=== PATIENT | male | born 1950 | race Caucasian/White ===

== ENCOUNTER 2016-11-16 20:45 | Emergency (ER) | payer OTHER ==
[2016-11-16 19:53] LABS: BASOPHILS 0.4 %; BASOPHILS ABSOLUTE 0.03 10/3/uL (0.0-0.16); EOSINOPHILS 2.5 %; EOSINOPHILS ABSOLUTE 0.21 10/3/uL (0.0-0.53); ER CBC TAT 0 Hrs 07 Mins; HEMOGLOBIN 12.2 g/dL (13.6-17.8); IMMATURE GRANULOCYTES 0.5 %; IMMATURE GRANULOCYTES ABSOLUTE 0.04 10/3/uL (0.0-0.11); LYMPHOCYTES 12.1 %; MEAN CORPUSCULAR VOLUME 83.7 fL (80-100); MEAN PLATELET VOLUME 9.9 fL (9.2-13.0); MONOCYTES 5.8 %; MONOCYTES ABSOLUTE 0.48 10/3/uL (0.21-1.20); NEUTROPHILS 78.7 %; NEUTROPHILS ABSOLUTE 6.53 10/3/uL (2.02-8.40); PLATELET COUNT 226 10/3/uL (150-400); RBC DISTRIBUTION WIDTH 16.2 % (12.0-16.0); RED CELL COUNT 4.36 10/6/uL (4.7-6.1); WHITE BLOOD CELLS 8.3 10/3/uL (4.5-10.5)
[2016-11-16 19:54] LABS: HEMATOCRIT 36.5 % (40.0-51.0); MANUAL DIFF NO %; MEAN CORPUS HGB CONC 33.4 g/dL (32.0-36.0)
[2016-11-16 20:08] LABS: ALBUMIN 3.3 G/DL (3.5-5.0); ALKALINE PHOSPHATASE 110 U/L (45-117); BUN (BLOOD UREA NITROGEN) 9 MG/DL (6-23); CALCIUM, SERUM 8.3 MG/DL (8.5-10.4); CHLORIDE, SERUM 103 MMOL/L (96-112); CO2 (CARBON DIOXIDE) 30 MMOL/L (24-34); CREATININE 0.64 MG/DL (0.70-1.30); GFR AFRICAN AMERICAN 117 ML/MIN (>=60); GFR NON AFRICAN AMERICAN 101 ML/MIN (>=60); GLOBULIN 3.2 G/DL (2.5-4.1); GLUCOSE, SERUM 185 MG/DL (60-99); POTASSIUM, SERUM 3.4 MMOL/L (3.5-5.3); SGOT(AST) 29 U/L (5-40); SGPT(ALT) 38 U/L (5-65); SODIUM, SERUM 141 MMOL/L (135-148); TOTAL BILIRUBIN 0.4 MG/DL (0-1.2); TOTAL PROTEIN 6.5 G/DL (6.0-8.5)
[2016-11-16 20:10] LABS: INFLUENZA A SCREEN NEGATIVE (NEGATIVE); INFLUENZA B SCREEN NEGATIVE (NEGATIVE)
[~2016-11-16 20:45] MED LIST: *UNABLE1; ABILIFY10 PO; ALBUTEROL NEB 0.083% INH; ALBUTEROL5 INH; AMITIZA24 PO; ASAB PO; ATIVAN2 MG PO; ATV1 PO; AUG875 PO; AVANDAMET PO; BUPIVACAINE; CARASPUDL PO; CHEMOTHERAPY IV; CHEMOTHERAPY SC; COMBIVENT INH; COMBIVENT RESPIM4 GM PO; DEX4 PO; DEXAMETHASONE; DORYX150 MG PO; DULERA 200 MCG/13 GM INH; ENDOCET1 TA1 PO; ENDOCET1 TA3 PO; FESO4 PO; FLEX PO; FLUCON1 PO; FORTAMET500 MG PO; GLUCOPHAGE1000 MG PO; GLUCPH PO; GLUMETZA500 MG PO; HABIT21 TOP; HUMI PO; IRON 65MG; K-TABS10 MEQ PO; K500 PO; KDUR10 PO; KLONO2 PO; KLONO5 PO; KLOR-CON 1010 MEQ PO; L20 PO; L40 PO; LEVAQUIN750 MG PO; LEVOTHYROXIN75 MCG PO; LOFIB160 PO; LORTAB10 PO; LOVASA PO; LOVAZA1 GM PO; MARI5 PO; METHOC750B PO; MORPHINE IL; MORPHINE PUMP SC; NEUR300 PO; NEUR600 PO; NEUR800 PO; NORCO1 TAB PO; P20 PO; PAIN PUMP SC; PERCOCET1 TA4 PO; PHEN50TAB PO; PR25 PO; PRILO PO; PRILOSEC40 MG PO; PRISTIQ50 MG PO; PROAIR HFA INH; PROTONIX PO; PROTONIX20 MG PO; PROVENTSOL INH; PT UNABLE TO RECALL; REG PO; REMERON30 MG PO; REST15 PO; RISP2 PO; ROXANOL20 MG/ML IV; SPIRIVA INH; STERAPRED DS10 MG PO; SYMBICORT 160/41 INH INH; SYMBICORT 80/4.1 INH INH; SYN075 PO; SYN1 PO; SYNTHROID PO; TOPAMAX25 PO; TRAZ50 PO; TRICOR48 PO; VALTREX5; VENTOLIN HFA INH; VIAGRA100 MG PO; VIB100 PO; VICODINTAB PO; VITAMIN D1000 UNI1 PO; VITAMIN D31000 UNIT PO; ZANTAC 150 PO; ZOCOR20 PO; ZOCOR40 PO; ZOFRAN4 PO; ZOL100 PO; [UNRECOGNIZED DRUG - CODE] IL; [UNRECOGNIZED DRUG - OTHER]; [UNRECOGNIZED DRUG - OTHER]; [UNRECOGNIZED DRUG - OTHER] INF
[2017-05-13] MEDS ORDERED: ATV1 PO (19:00)
[2017-05-13] MEDS ORDERED: ATV.5 PO ×2 (19:01)
[2017-05-13] MEDS ORDERED: PERI-COLACE1 TAB PO (19:01)
[2017-05-13] MEDS ORDERED: CONSTULOSE PO (19:02)
[2017-05-13] MEDS ORDERED: PR25 PO (19:02)
[2017-05-13] MEDS ORDERED: L40 PO (19:02)
[2017-05-13] MEDS ORDERED: DEX2 PO (19:02)
[2017-05-13] MEDS ORDERED: ROXICODONE15 MG PO (19:03)
[2017-05-13] MEDS ORDERED: ABILIFY10 PO (19:03)
[2017-05-13] MEDS ORDERED: [UNRECOGNIZED DRUG - OTHER] PO (19:04)
[2017-05-13] MEDS ORDERED: TRAZ100 PO (19:04)
[2017-05-13] MEDS ORDERED: DUONEB INH (19:04)
[2017-05-13] MEDS ORDERED: KDUR10 PO (19:05)
[2017-05-13] MEDS ORDERED: NEUR800 PO (19:05)
[2017-05-13] MEDS ORDERED: VITAMIN D31000 UNIT PO (19:06)
[2017-05-13] MEDS ORDERED: FORTAMET500 MG PO (19:06)
[2017-05-13] MEDS ORDERED: ASAB PO (19:06)
[2017-05-13] MEDS ORDERED: PRILOSEC40 MG PO (19:07)
[2017-05-13] MEDS ORDERED: PAIN PUMP (19:08)
== END 2016-11-17 01:00 | disposition home or self-care (01) ==
LOC: ER 20:45
PROVIDERS: Hospitalist
DX: J44.1 Chronic obstructive pulmonary disease with (acute) exacerbation (principal); J98.11 Atelectasis; I50.9 Heart failure, unspecified; E11.9 Type 2 diabetes mellitus without complications; D64.9 Anemia, unspecified; Z88.8 Allergy status to other drugs, medicaments and biological substances; Z88.1 Allergy status to other antibiotic agents; Z79.899 Other long term (current) drug therapy
CPT/HCPCS: 71010; 71250; 80053; 85025; 87040; 87070; 87205; 87804; 93005; 94640; 96374; 99285; A9270-GY; J2405; J2930

== ENCOUNTER 2016-11-17 09:16 | Emergency (ER) | payer OTHER ==
[2016-11-17 10:21] LABS: BASOPHILS 0.1 %; BASOPHILS ABSOLUTE 0.01 10/3/uL (0.0-0.16); EOSINOPHILS 0.2 %; EOSINOPHILS ABSOLUTE 0.02 10/3/uL (0.0-0.53); HEMATOCRIT 39.1 % (40.0-51.0); IMMATURE GRANULOCYTES 0.4 %; IMMATURE GRANULOCYTES ABSOLUTE 0.04 10/3/uL (0.0-0.11); LYMPHOCYTES 7.2 %; LYMPHOCYTES ABSOLUTE 0.72 10/3/uL (0.67-4.30); MANUAL DIFF NO %; MEAN CORPUS HGB CONC 33.2 g/dL (32.0-36.0); MEAN CORPUSCULAR HEMOGLOB 27.9 pg (26.0-34.0); MEAN CORPUSCULAR VOLUME 83.9 fL (80-100); MEAN PLATELET VOLUME 10.3 fL (9.2-13.0); MONOCYTES 7.5 %; MONOCYTES ABSOLUTE 0.75 10/3/uL (0.21-1.20); NEUTROPHILS 84.6 %; NEUTROPHILS ABSOLUTE 8.46 10/3/uL (2.02-8.40); PLATELET COUNT 271 10/3/uL (150-400); RBC DISTRIBUTION WIDTH 15.7 % (12.0-16.0); RED CELL COUNT 4.66 10/6/uL (4.7-6.1)
[2016-11-17 10:27] LABS: PARTIAL THROMBO TIME 23.7 SEC (22.5-37.2); PROTIME (NOT ORD) 13.2 SEC (12.0-14.5)
[2016-11-17 10:38] LABS: BUN (BLOOD UREA NITROGEN) 11 MG/DL (6-23); CALCIUM, SERUM 8.7 MG/DL (8.5-10.4); CHEST PAIN PROFILE TAT 0 Hrs 23 Mins; CHLORIDE, SERUM 103 MMOL/L (96-112); CO2 (CARBON DIOXIDE) 28 MMOL/L (24-34); GFR AFRICAN AMERICAN 121 ML/MIN (>=60); GFR NON AFRICAN AMERICAN 104 ML/MIN (>=60); GLUCOSE, SERUM 223 MG/DL (60-99); POTASSIUM, SERUM 4.3 MMOL/L (3.5-5.3); SODIUM, SERUM 139 MMOL/L (135-148); TROPONIN I <0.02 NG/ML (<0.05)
[2016-11-17 12:35] LABS: ASCORBIC ACID (UR NOT ORDER) NEG (NEG); BILIRUBIN, URINE NEGATIVE (NEG); ER URINALYSIS TAT 0 Hrs 09 Mins; KETONE, URINE NEGATIVE (NEG); LEUKOCYTE ESTERASE(NOT OR NEG (NEG); NITRITE (URINE) NEG (NEG); WBC (NOT ORDERED) (RFLEX) 1 (0-5)
[2017-05-13] MEDS ORDERED: ATV1 PO (19:00)
[2017-05-13] MEDS ORDERED: PERI-COLACE1 TAB PO (19:01)
[2017-05-13] MEDS ORDERED: ATV.5 PO ×2 (19:01)
[2017-05-13] MEDS ORDERED: PR25 PO (19:02)
[2017-05-13] MEDS ORDERED: L40 PO (19:02)
[2017-05-13] MEDS ORDERED: CONSTULOSE PO (19:02)
[2017-05-13] MEDS ORDERED: DEX2 PO (19:02)
[2017-05-13] MEDS ORDERED: ABILIFY10 PO (19:03)
[2017-05-13] MEDS ORDERED: ROXICODONE15 MG PO (19:03)
[2017-05-13] MEDS ORDERED: [UNRECOGNIZED DRUG - OTHER] PO (19:04)
[2017-05-13] MEDS ORDERED: TRAZ100 PO (19:04)
[2017-05-13] MEDS ORDERED: DUONEB INH (19:04)
[2017-05-13] MEDS ORDERED: NEUR800 PO (19:05)
[2017-05-13] MEDS ORDERED: KDUR10 PO (19:05)
[2017-05-13] MEDS ORDERED: VITAMIN D31000 UNIT PO (19:06)
[2017-05-13] MEDS ORDERED: FORTAMET500 MG PO (19:06)
[2017-05-13] MEDS ORDERED: ASAB PO (19:06)
[2017-05-13] MEDS ORDERED: PRILOSEC40 MG PO (19:07)
[2017-05-13] MEDS ORDERED: PAIN PUMP (19:08)
== END 2016-11-17 16:42 | disposition home or self-care (01) ==
LOC: ER 09:16
PROVIDERS: Emergency Medicine
DX: R10.13 Epigastric pain (principal); R11.2 Nausea with vomiting, unspecified; J18.9 Pneumonia, unspecified organism; J44.9 Chronic obstructive pulmonary disease, unspecified; I50.9 Heart failure, unspecified; F17.200 Nicotine dependence, unspecified, uncomplicated; Z85.828 Personal history of other malignant neoplasm of skin
CPT/HCPCS: 71010; 74176; 80048; 81001; 83690; 83735; 84484; 85025; 85610; 85730; 93005; 96374; 96375; 99285; C9113; J1956; J2405

== ENCOUNTER 2016-12-31 19:16 | Inpatient (IN) | payer OTHER ==
--- NOTE | ~2016-12-31 | IDS ---
Interim Discharge Summary [facility] [address] [place]. [address] NAME: JAYE ODONNELL : 48 STATUS : ADM IN [facility]#: [id number] AGE: 66 ADM/REG DATE : 12/31/16 MR#: [id number] REPORT SERV DATE: 01/05/17 DICTATED BY: GEOFFREY GRAEVS DATE: 01/05/17 REPORT STATUS : Draft TRANSCRIBED BY: MODL DATE: 01/05/17 ADMISSION DATE: 12/31/2016 DISCHARGE DATE: PROBLEM LIST: 1. Healthcare associated pneumonia, recurrent. 2. Chronic obstructive pulmonary disease, oxygen dependent on 4 L in an active smoker. 3. Diabetes mellitus type 2 with A1c 6.1%. 4. Hypertension. 5. Chronic back pain with a pain pump managed by Dr. Acosta and he goes to another office to see oral ceramic painter Dr. Lombardo. 6. Opiate induced constipation. 7. History of vitamin D deficiency with previous hypocalcemia. 8. Bipolar disorder. 9. Obesity with body mass index of 33.7. 10.Previous melanoma. 11.Previous small bowel arteriovenous malformation bleeding. 12.History of previous deep venous thrombosis in 2011. 13.History of seizures many years ago. 14.History of low testosterone level. HISTORY: This patient reportedly has been at [facility] in August, October, and early December of this year with pneumonia, most recently they are 12/18/2016 through 12/22/2016. He presented to our emergency room with fever, cough, and found to have right middle and right lower lobe pneumonia, and was admitted to our team for inpatient care. The patient initially was on Rocephin and azithromycin, then converted over to cefepime and vancomycin because of his healthcare associated pneumonia. He improved and has been out taken off his vancomycin, and he is still on cefepime, and is clinically improving. The patient's procalcitonin at its highest was 1.04 ,currently improved to 0.58. He is still on 4 L which is his chronic baseline. He reportedly had history of sleep apnea in the past, but states he was told he got better on followup test and did not need CPAP. The patient has chronic pain for which he goes to Dr. Acosta and has a pain pump management. He also goes to another office where he sees Dr. Lombardo for oral pain medications. He has opiate induced constipation. He is on Amitiza which has not been doing a great job, so, MiraLAX has been added, we are also adding some lactulose. If this combination does not work well then possibly considering a change to Movantik. Physical therapy has recommended a correction facility placement. We will ask nurse outreach case manager to talk further with the patient about this. He has a history of bipolar disorder. He is currently cooperative and on medications for this. Because of the recurring pneumonia in the same section of the lung, he was seen by a Pulmonary doctor at [facility]. Dr. Ai Roberts, who did not recommend any bronchoscopy. Interim Discharge Summary [address] [place]. [address] NAME: JAYE DOONNELL : 48 STATUS : ADM IN PAT#: [id number] AGE: 66 ADM/REG DATE : 12/31/16 MR#: [id number] REPORT SERV DATE: 01/05/17 DICTATED BY: GEOFFREY GRAVES DATE: 01/05/17 REPORT STATUS : Draft TRANSCRIBED BY: SABIHA DATE: 01/05/17 However, I would recommend the patient see Dr. Conner his primary exchange architect after discharge, because of recurring pneumonia four times this year in the same section of the lungs suggests the possibility of underlying endobronchial lesion, even though reportedly it was not seen on the CT at [facility]. GINNY/SABIHA Geoffrey Graves M.D. / [id number] CC: MD OLIVIA Rodriguez II, TRACY
--- NOTE | ~2016-12-31 | HP ---
History And Physical [address] [place]. [address] NAME: JAYE ODONNELL : 48 STATUS : ADM IN [facility]#: [id number] AGE: 66 ADM/REG DATE : 12/31/16 MR#: [id number] REPORT SERV DATE: 01/01/17 DICTATED BY: MERCEDES EASLEY DATE: 12/31/16 REPORT STATUS : Draft TRANSCRIBED BY: MODL DATE: 12/31/16 DATE OF ADMISSION: 12/31/2016 POINT OF ENTRY: [facility] Emergency Department. PRIMARY ACCOUNT CONTACT ASSOCIATE: Dr. Conner. CHIEF COMPLAINT: Shortness of breath and fevers. HISTORY OF PRESENT ILLNESS: Mr. Odonnell is a 66-year-old gentleman with history of COPD on 4 L by nasal cannula, kic-deisxqr-mbqdqfugg diabetes mellitus, type 2; chronic diastolic congestive heart failure; hypothyroidism; as well as active tobacco abuse, who presents to the emergency department today with a few day history of shortness of breath, cough, sputum production, fevers, as well as abdominal pain, nausea, and vomiting. The patient is a very poor historian, but the patient states for the past few days, he has had fevers as high as 102 degrees Fahrenheit, cough, sputum production, shortness of breath. The patient also reports a few day history also of a diffuse abdominal pain with associated nausea and vomiting. He denies any chest pain, diarrhea, constipation, melena, hematochezia, hemoptysis, or hematemesis. Initial evaluation in the emergency department revealed a temperature of 100.6 degrees Fahrenheit, pulses were in the low 100s, white count 23,200, lactic acid is 2.8. Chest x- ray concerning for right lower lobe infiltrate. The patient was subsequently admitted to the Hospitalist Service for further evaluation and management. COMPREHENSIVE REVIEW OF SYSTEMS: Otherwise negative unless listed in history of present illness. PREVIOUS MEDICAL HISTORY: 1. COPD, on 4 L by nasal cannula. 2. Chronic diastolic congestive heart failure. 3. Hypothyroidism. 4. Vcz-vbdsnfp-iouvrxlhv diabetes mellitus type 2. 5. Chronic lower back pain on chronic narcotics. 6. Iron-deficiency anemia. 7. Active tobacco abuse. SURGICAL HISTORY: 1. Cholecystectomy. 2. Appendectomy. 3. Back surgery. 4. Total knee. ALLERGIES: 1. ATENOLOL. History And Physical [address] [place]. [address] NAME: JAYE ODONNELL : 48 STATUS : ADM IN [facility]#: [id number] AGE: 66 ADM/REG DATE : 12/31/16 MR#: [id number] REPORT SERV DATE: 01/01/17 DICTATED BY: MERCEDES EASLEY DATE: 12/31/16 REPORT STATUS : Draft TRANSCRIBED BY: SABIHA DATE: 12/31/16 2. LEVAQUIN. 3. STADOL. HOME MEDICATIONS: This is an incomplete list. This list also varies dramatically from discharge medication list from September as the patient has told pharmacy that he is not taking a great deal of medications. 1. Abilify 10 mg daily. 2. Vitamin D 1000 units daily. 3. Neurontin 800 mg b.i.d. 4. Amitiza 24 mcg b.i.d. 5. Remeron 30 mg daily. 6. Omeprazole 40 mg b.i.d. 7. Potassium chloride 10 mEq b.i.d. SOCIAL HISTORY: He still smokes about a half pack per day. Denies any alcohol. Denies any illicits. FAMILY HISTORY: The patient is unable to tell me any family medical history. LABS AND IMAGIN. White count 23,200, hemoglobin is 12.4, hematocrit is 38.0, and platelet count is 278. INR 1.2. 2. Sodium is 137, potassium 4.1, chloride 101, carbon dioxide 28, BUN 10, creatinine 0.76, glucose is 192, calcium is 8.6, protein 6.5, albumin is 3.5, bilirubin 1.2, ALT is 60, AST 47, and alkaline phosphatase is 176. 3. Lipase is 129. 4. Lactic acid 2.8. 5. Urinalysis: Spec gravity of 1.015, no evidence of any infection. 6. ABG; pH is 7.44, pCO2 is 37, PO2 is 74, bicarb is 25. 7. EKG per my review shows sinus tachycardia with heart rates of 109 with no evidence of any acute ischemia or infarction. 8. Chest x-ray per my review shows a right lower lobe consolidation concerning for pneumonia. PHYSICAL EXAMINATION: VITAL SIGNS: Temperature is 100.6 degrees Fahrenheit, pulse is 94, respirations 16, saturating 94% on 4 L by nasal cannula. Blood pressure 165/52. On recheck, blood pressure now 161/49, pulse of 103, saturating 92% on 4 L by nasal cannula. GENERAL: The patient is awake, alert, in no acute distress. Resting comfortably in bed. He is a chronically ill-appearing, elderly male. HEENT: Atraumatic and normocephalic. Moist mucous membranes. Pupils are equal, round, reactive to light and accommodation. Extraocular eye movements intact. No scleral icterus. NECK: No jugular venous distention. No carotid bruits. CARDIAC: Tachycardic rate, regular rhythm. No murmurs, rubs, or gallops. Normal S1, normal S2. LUNGS: On oxygen, mildly tachypneic but in no respiratory distress. Does have a right lower lobe inspiratory rhonchi but otherwise no wheezes or crackles appreciated. History And Physical [address] [address] NAME: JAYE ODONNELL : 48 STATUS : ADM IN [facility]#: [id number] AGE: 66 ADM/REG DATE : 12/31/16 MR#: [id number] REPORT SERV DATE: 01/01/17 DICTATED BY: MERCEDES EASLEY DATE: 12/31/16 REPORT STATUS : Draft TRANSCRIBED BY: SABIHA DATE: 12/31/16 ABDOMEN: Soft, diffusely tender on palpation, but no rebound, guarding, or rigidity. EXTREMITIES: Warm, perfused. No cyanosis, clubbing, or edema. SKIN: Warm and dry. PSYCH: Affect appropriate. NEURO: Alert and oriented x3. Cranial nerves 2 through 12 grossly intact. Speech is normal. Gait not assessed. ASSESSMENT: Mr. Odonnell is a 66-year-old gentleman who presents with a few day history of diffuse complaints including fevers, cough, sputum production, shortness of breath, abdominal pain, nausea, vomiting, found to have evidence of sepsis as well as a right lower lobe pneumonia. PROBLEM LIST: 1. Right lower lobe pneumonia. 2. Sepsis. 3. Abdominal pain, nausea, and vomiting. 4. COPD, on chronic 4 L by nasal cannula. 5. Chronic diastolic congestive heart failure. 6. Active tobacco abuse. 7. Medication noncompliance. 8. History of hypothyroidism. 9. History of nzm-ndmkyot-oqlrdueal diabetes mellitus type 2. PLAN: 1. Right lower lobe pneumonia with sepsis. We will place the patient on broad-spectrum antibiotics as well as aggressive IV fluid hydration. Follow up blood cultures and sputum cultures. We will repeat a lactic acid as it was elevated at 2.8. 2. Abdominal pain, nausea, and vomiting. Checking a CT scan of the abdomen and pelvis given the patient's complaints of abdominal pain, nausea, vomiting, as well as a white count 23,000 and a mildly elevated lactic acid level, which I think is due to pneumonia but will rule out abdominal source. 3. COPD. The patient does not appear to have any acute exacerbation at this time as I do not appreciate any wheezing. We will continue patient on frequent bronchodilators. 4. Chronic diastolic congestive heart failure. The patient appears euvolemic to slightly dry at this time. Continue to monitor. Checking a BNP level. 5. History of wsk-iejmbhe-lwfxpnvit diabetes mellitus type 2. The patient reports he is not currently on any medications. Checking hemoglobin A1c as well as placing on a level 1 insulin sliding scale. 6. History of hypothyroidism. The patient also denies taking any Synthroid, checking a TSH level. 7. Active tobacco abuse. Counseled the need for tobacco cessation. 8. DVT prophylaxis. Lovenox subcu. CODE STATUS: The patient wished to be full code. History And Physical [address] [address] NAME: JAYE ODONNELL : 48 STATUS : ADM IN [facility]#: [id number] AGE: 66 ADM/REG DATE : 12/31/16 MR#: [id number] REPORT SERV DATE: 01/01/17 DICTATED BY: MERCEDES EASLEY DATE: 12/31/16 REPORT STATUS : Draft TRANSCRIBED BY: MODPat DATE: 12/31/16 AGUSTIN/SABIHA Mercedes Easley MD / [id number] CC: Duy Tellez M.D.
--- NOTE | ~2016-12-31 | DS ---
Discharge Summary [facility] [address] [facility] [place]. [address] NAME: JAYE ODONNELL : 48 STATUS : DIS IN PAT#: [id number] AGE: 66 ADM/REG DATE : 12/31/16 MR#: [id number] REPORT SERV DATE: 01/07/17 DICTATED BY: NICOLE DOAN DATE: 01/07/17 REPORT STATUS : Draft TRANSCRIBED BY: MODPat DATE: 01/07/17 ADMISSION DATE: 12/31/2016 DISCHARGE DATE: 01/07/2017 PRINCIPAL DIAGNOSIS: Hospital-acquired pneumonia. SECONDARY DIAGNOSES: Chronic obstructive pulmonary disease with exacerbation, atelectasis, hypoxemic respiratory failure acute on chronic, bipolar, chronic pain syndrome, opiate- induced constipation, and diabetes. HISTORY OF PRESENT ILLNESS: Please see Dr. Blu Townsend's dictation 12/31/2016. HOSPITAL COURSE: Admitted with recurrent pneumonia, bilateral infiltrates, confirmed to have a right lower lobe infiltrate on CT but a large amount of atelectasis. The patient received broad spectrum antibiotics with gradual improvement, still with ongoing hypoxemia. He underwent some chest percussion therapy, mucolytic therapy with resolution of the atelectasis, and the infiltrate had already gotten better as well. The patient had completed his eight day of antibiotics by 01/07/2017. He actually was doing poorly with physical therapy and was requested to go to a detention facility. However, the patient refused detention facility placement and instead wished to go home with home health care especially due to concerns about his check so the patient went home with reservations. Otherwise stable condition with low-salt, 1800 calorie ADA diet. Activity per home health care and ongoing use of wheelchair. Following medications; Duo-nebs p.r.n., Spiriva, Brovana, Pulmicort, MiraLAX, Mucinex, oxycodone was reduced to 10 mg and p.r.n. only, MS Contin continue 30 b.i.d., home doses of insulin were resumed, Remeron, Neurontin, Abilify, Amitiza, nicotine patch. DICTATED BY: Duy Fang/SABIHA Nicole Doan M.D. / [id number] CC: Duy Fang
--- NOTE | ~2016-12-31 | IDS ---
Interim Discharge Summary [facility] [address] [place]. [address] NAME: JAYE ODONNELL : 48 STATUS : ADM IN [facility]#: [id number] AGE: 66 ADM/REG DATE : 12/31/16 MR#: [id number] REPORT SERV DATE: 01/05/17 DICTATED BY: DATE: REPORT STATUS : Draft TRANSCRIBED BY: MODL DATE: 01/04/17 ADMISSION DATE: 12/31/2016 DISCHARGE DATE: DATE OF DISCHARGE: Hopefully within the next 48 hours. INTERIM DIAGNOSES: 1. Healthcare acquired pneumonia. 2. Sepsis, resolved. 3. Chronic obstructive pulmonary disease with chronic hypoxic respiratory failure. 4. Debility/deconditioning. 5. Tobacco abuse. 6. Type 2 diabetes mellitus. 7. Chronic pain. 8. Opioid-induced constipation. 9. Bipolar disorder. CONSULTATIONS: None. PERTINENT TESTS AND PROCEDURES: 1. Chest x-ray, 12/31/2016. Impression: Basilar infiltrate, question pneumonia. Associated pleural effusion cannot be excluded on the right side. 2. CT of abdomen and pelvis with contrast, 12/31/2016. Impression: Right middle and right lower lobe acute pneumonia. Status post cholecystectomy, lumbar spine fusion L3 through S1, with laminectomy L3 through L5, and implanted pain medication pump right lower quadrant. No acute pathology. 3. Chest x-ray, 01/03/2017. Impression: Persistent right lower lobe infiltrate consistent with residual pneumonia, although improving from 12/31/2016 chest x-ray and CT abdomen. 4. Blood cultures x2 sites, specimen collected 12/31/2016. Final result: One positive blood culture. Two collected growth of Staph species coag negative, probable contamination. Interim summary covers dates of service between 01/01/2017 and 01/04/2017. CHIEF COMPLAINT UPON ADMISSION: Shortness of breath and fevers. HOSPITAL COURSE: 1. Healthcare acquired pneumonia. The patient has suffered from respiratory illness since November. Review of records obtained from [facility] showed the patient had ER visit on 12/07/2016 at which time, he was diagnosed with acute bronchitis and COPD exacerbation. The patient also reported to emergency department on 12/16/2016 and was diagnosed with acute bacterial pneumonia and was discharged home with a prescription for Levaquin. The patient was also admitted to [facility] between dates of service 12/18/2016 and 12/23/2016 for community-acquired pneumonia and bronchial obstruction secondary to mucus plug since resolved. During this admission, the patient was evaluated by Dr. Roberts, Pulmonology, at [facility]. There was initial concern for endobronchial lesion, Interim Discharge Summary [id number] [place]. [address] NAME: JAYE ODONNELL : 48 STATUS : ADM IN PAT#: [id number] AGE: 66 ADM/REG DATE : 12/31/16 MR#: [id number] REPORT SERV DATE: 01/05/17 DICTATED BY: DATE: REPORT STATUS : Draft TRANSCRIBED BY: MODL DATE: 01/04/17 but it was ruled out and attributed to mucus plug. The patient completed 10 days of Levaquin during that admission. The patient's white blood count was elevated and reported to be 23,200 upon admission. The patient was placed on azithromycin and Rocephin upon admission. Within 24 hours the patient's white count trended upward to 25,600. At that time, azithromycin and Rocephin were discontinued, and vancomycin and cefepime were initiated, within 24 hours the patient's white count trended down to 11,800, and is normal today at 9,100. Vancomycin was discontinued today. Continue cefepime and deescalate when medically appropriate to p.o. antibiotics. Chest x-ray in a.m. pending along with repeat procalcitonin. 1. Sepsis. This was present upon admission secondary to healthcare associated pneumonia. Sepsis has since resolved with antibiotic therapy. 2. COPD with chronic hypoxic respiratory failure. The patient is 4 L supplemental O2 dependent at home. 3. Debility/deconditioning. The patient is significantly weak secondary to multiple health comorbidities. The patient lives alone. PT recommended correction facility at discharge. The patient declined stating he lives alone and needs to manage his personal affairs once discharged from hospital. Social Work is planning home health care at discharge. 4. Tobacco abuse. The patient has been taking Chantix for approximately two months in an attempt to stop smoking. Dose was continued during admission, but was stopped yesterday due to progressive headache. Since discontinuing Chantix headache has resolved. 5. Type 2 diabetes mellitus. The patient's blood glucose is stable on current regimen. 6. Chronic pain secondary to previous spinal surgeries. The patient has a pain pump implanted in his right lower abdominal quadrant. Pain pump is composed with bupivacaine and morphine that is refilled monthly. The patient is followed by Dr. Lombardo and Soto Ge, physician insurance account assistant. The patient's oral home pain medications were verified by Pharmacy and have been continued during this admission. Follow up outpatient with Pain Management upon discharge. 7. Opioid-induced constipation. The patient is on chronic therapy with Amitiza; however, is still suffering from constipation, MiraLAX and Senokot added. 8. Bipolar disorder. Continue Abilify and mirtazapine. DISCHARGE PLANS: 1. Social Work has been consulted regarding planning to include home health care at discharge. 2. The patient to hopefully discharge home within next 48 to 72 hours if respiratory status remains stable, and pneumonia continues to resolve on current antibiotic therapy. ERNESTO/SABIHA BRIANNE Chaidez Interim Discharge Summary [address] [address] NAME: JAYE ODONNELL : 48 STATUS : ADM IN PAT#: [id number] AGE: 66 ADM/REG DATE : 12/31/16 MR#: [id number] REPORT SERV DATE: 01/05/17 DICTATED BY: DATE: REPORT STATUS : Draft TRANSCRIBED BY: SABIHA DATE: 01/04/17 / [id number] CC: MD Betty Rodriguez II, MD
[2016-12-31 21:37] LABS: ASCORBIC ACID (UR NOT ORDER) NEG (NEG); BILIRUBIN, URINE NEGATIVE (NEG); ER URINALYSIS TAT 0 Hrs 07 Mins; KETONE, URINE NEGATIVE (NEG); LEUKOCYTE ESTERASE(NOT OR NEG (NEG); NITRITE (URINE) NEG (NEG); WBC (NOT ORDERED) (RFLEX) < 1 (0-5)
[2016-12-31 21:43] LABS: BASOPHILS 0.1 %; BASOPHILS ABSOLUTE 0.03 10/3/uL (0.0-0.16); EOSINOPHILS 0.5 %; EOSINOPHILS ABSOLUTE 0.11 10/3/uL (0.0-0.53); HEMOGLOBIN 12.4 g/dL (13.6-17.8); IMMATURE GRANULOCYTES 0.4 %; IMMATURE GRANULOCYTES ABSOLUTE 0.09 10/3/uL (0.0-0.11); LYMPHOCYTES 2.4 %; LYMPHOCYTES ABSOLUTE 0.56 10/3/uL (0.67-4.30); MEAN CORPUS HGB CONC 32.6 g/dL (32.0-36.0); MEAN CORPUSCULAR HEMOGLOB 26.3 pg (26.0-34.0); MEAN PLATELET VOLUME 10.3 fL (9.2-13.0); MONOCYTES 3.2 %; MONOCYTES ABSOLUTE 0.75 10/3/uL (0.21-1.20); NEUTROPHILS 93.4 %; NEUTROPHILS ABSOLUTE 21.64 10/3/uL (2.02-8.40); PLATELET COUNT 278 10/3/uL (150-400); RBC DISTRIBUTION WIDTH 14.9 % (12.0-16.0); RED CELL COUNT 4.71 10/6/uL (4.7-6.1)
[2016-12-31 21:44] LABS: ER CBC TAT 0 Hrs 08 Mins; MEAN CORPUSCULAR VOLUME 80.7 fL (80-100); WHITE BLOOD CELLS 23.2 10/3/uL (4.5-10.5)
[2016-12-31 21:45] LABS: MANUAL DIFF NO %
[2016-12-31 21:53] LABS: PARTIAL THROMBO TIME 27.1 SEC (22.5-37.2); PROTIME (NOT ORD) 13.1 SEC (12.0-14.5)
[2016-12-31 22:01] LABS: A/G RATIO 1.2 (0.7-1.9); ALBUMIN 3.5 G/DL (3.5-5.0); ALKALINE PHOSPHATASE 176 U/L (45-117); BUN (BLOOD UREA NITROGEN) 10 MG/DL (6-23); CALCIUM, SERUM 8.6 MG/DL (8.5-10.4); CHLORIDE, SERUM 101 MMOL/L (96-112); CO2 (CARBON DIOXIDE) 28 MMOL/L (24-34); CREATININE 0.76 MG/DL (0.70-1.30); GFR AFRICAN AMERICAN 109 ML/MIN (>=60); GFR NON AFRICAN AMERICAN 94 ML/MIN (>=60); GLUCOSE, SERUM 192 MG/DL (60-99); POTASSIUM, SERUM 4.1 MMOL/L (3.5-5.3); SGOT(AST) 47 U/L (5-40); SGPT(ALT) 60 U/L (5-65); SODIUM, SERUM 137 MMOL/L (135-148); TOTAL BILIRUBIN 1.2 MG/DL (0-1.2); TOTAL PROTEIN 6.5 G/DL (6.0-8.5)
[2016-12-31 22:06] LABS: LACTATE 2.8 MMOL/L (0.3-2.4)
[2016-12-31 22:30] LABS: PROCALCITONIN 0.44 ng/mL (<0.5)
[2016-12-31] MEDS ORDERED: KLOR-CON 1010 MEQ PO (22:31)
[2016-12-31] MEDS ORDERED: AMITIZA24 PO (22:31)
[2016-12-31] MEDS ORDERED: ABILIFY10 PO (22:31)
[2016-12-31] MEDS ORDERED: PRILOSEC40 MG PO (22:31)
[2016-12-31] MEDS ORDERED: NEUR800 PO (22:31)
[2016-12-31] MEDS ORDERED: VITAMIN D31000 UNIT PO (22:32)
[2016-12-31] MEDS ORDERED: REMERON30 MG PO (22:33)
[2016-12-31] MEDS ORDERED: *UNABLE1 (22:33)
[2017-01-01 03:30] LABS: HEMATOCRIT 35.9 % (40.0-51.0); HEMOGLOBIN 11.7 g/dL (13.6-17.8); MEAN CORPUS HGB CONC 32.6 g/dL (32.0-36.0); MEAN CORPUSCULAR HEMOGLOB 26.6 pg (26.0-34.0); MEAN CORPUSCULAR VOLUME 81.6 fL (80-100); MEAN PLATELET VOLUME 10.5 fL (9.2-13.0); PLATELET COUNT 260 10/3/uL (150-400); RBC DISTRIBUTION WIDTH 14.8 % (12.0-16.0); WHITE BLOOD CELLS 25.6 10/3/uL (4.5-10.5)
[2017-01-01 03:31] LABS: MANUAL DIFF YES %
[2017-01-01 03:54] LABS: BUN (BLOOD UREA NITROGEN) 11 MG/DL (6-23); CALCIUM, SERUM 8.2 MG/DL (8.5-10.4); CHLORIDE, SERUM 103 MMOL/L (96-112); CO2 (CARBON DIOXIDE) 26 MMOL/L (24-34); CREATININE 0.88 MG/DL (0.70-1.30); FREE T4 1.07 NG/DL (0.76-1.46); GFR AFRICAN AMERICAN 103 ML/MIN (>=60); GFR NON AFRICAN AMERICAN 89 ML/MIN (>=60); GLUCOSE, SERUM 297 MG/DL (60-99); SODIUM, SERUM 139 MMOL/L (135-148)
[2017-01-01 03:55] LABS: BAND NEUTROPHILS 13 %; LYMPHOCYTES 1 %; LYMPHOCYTES ABSOLUTE (CALC) 0.26 10/3/uL (0.67-4.30); MONOCYTES 1 %; MONOCYTES ABSOLUTE (CALC) 0.26 10/3/uL (0.21-1.20); NEUTROPHILS ABSOLUTE (CALC) 25.09 10/3/uL (2.02-8.40); PLATELET ESTIMATE ADQ (ADEQUATE); RBC MORPHOLOGY NORM (NORMAL); SEGMENTED NEUTROPHIL (0) 85 %; TOTAL NUCLEATED CELLS 100
[2017-01-01 04:24] LABS: ALLENS TEST Pos; BE (BASE EXCESS) 0.7 MEQ/L (0 +/- 2.5); CARBOXYHEMOGLOBIN 2.5 % (0-3); DEVICE NC; HCO3 (ACTUAL BICARBONATE) 24.5 MEQ/L (23-27); HEMOBLOGIN CONTENT 13.3 G/DL (14-18); INSTRUMENT SERIAL # 8087; METHEMOGLOBIN 0.3 % (0-3); O2 CONTENT 17.4 VOL% (18-24); OPERATOR ID 35390; PCO2 (CO2 TENSION) 37 MMHG (35-45); PO2 (O2 TENSION) 74 MMHG (79-93); SAMPLE Arterial; pH 7.44 (7.37-7.43)
[2017-01-01] MEDS ORDERED: KLONO5 PO ×2 (13:20)
[2017-01-01] MEDS ORDERED: PAIN PUMP (13:20)
[2017-01-01] MEDS ORDERED: ROXICODONE15 MG PO (13:21)
[2017-01-01] MEDS ORDERED: MSCONTIN PO (13:21)
[2017-01-01] MEDS ORDERED: MARI5 PO (13:22)
[2017-01-01 22:19] LABS: ASCORBIC ACID (UR NOT ORDER) NEG (NEG); BILIRUBIN, URINE NEGATIVE (NEG); KETONE, URINE NEGATIVE (NEG); LEUKOCYTE ESTERASE(NOT OR NEG (NEG); WBC (NOT ORDERED) (RFLEX) < 1 (0-5)
[2017-01-02 06:29] LABS: BASOPHILS 0.2 %; BASOPHILS ABSOLUTE 0.02 10/3/uL (0.0-0.16); EOSINOPHILS 1.4 %; EOSINOPHILS ABSOLUTE 0.16 10/3/uL (0.0-0.53); HEMOGLOBIN 9.7 g/dL (13.6-17.8); IMMATURE GRANULOCYTES 0.3 %; IMMATURE GRANULOCYTES ABSOLUTE 0.03 10/3/uL (0.0-0.11); LYMPHOCYTES 9.7 %; LYMPHOCYTES ABSOLUTE 1.14 10/3/uL (0.67-4.30); MEAN CORPUS HGB CONC 32.7 g/dL (32.0-36.0); MEAN CORPUSCULAR HEMOGLOB 26.2 pg (26.0-34.0); MEAN CORPUSCULAR VOLUME 80.3 fL (80-100); MEAN PLATELET VOLUME 10.2 fL (9.2-13.0); MONOCYTES 5.4 %; MONOCYTES ABSOLUTE 0.63 10/3/uL (0.21-1.20); NEUTROPHILS ABSOLUTE 9.78 10/3/uL (2.02-8.40); PLATELET COUNT 220 10/3/uL (150-400); RBC DISTRIBUTION WIDTH 15.2 % (12.0-16.0)
[2017-01-02 06:31] LABS: HEMATOCRIT 29.7 % (40.0-51.0); MANUAL DIFF NO %; WHITE BLOOD CELLS 11.8 10/3/uL (4.5-10.5)
[2017-01-02 06:40] LABS: CALCIUM, SERUM 8.3 MG/DL (8.5-10.4); CHLORIDE, SERUM 108 MMOL/L (96-112); CO2 (CARBON DIOXIDE) 29 MMOL/L (24-34); GFR AFRICAN AMERICAN 113 ML/MIN (>=60); GFR NON AFRICAN AMERICAN 98 ML/MIN (>=60); POTASSIUM, SERUM 3.7 MMOL/L (3.5-5.3); SODIUM, SERUM 143 MMOL/L (135-148)
[2017-01-02 06:41] LABS: BUN (BLOOD UREA NITROGEN) 17 MG/DL (6-23); GLUCOSE, SERUM 170 MG/DL (60-99)
[2017-01-02] MEDS ORDERED: CHANTIX1 PO (12:28)
[2017-01-02 13:54] LABS: HEMATOCRIT 32.1 % (40.0-51.0); HEMOGLOBIN 10.2 g/dL (13.6-17.8)
[2017-01-03 07:44] LABS: BASOPHILS 0.1 %; BASOPHILS ABSOLUTE 0.01 10/3/uL (0.0-0.16); EOSINOPHILS 3.6 %; EOSINOPHILS ABSOLUTE 0.26 10/3/uL (0.0-0.53); HEMATOCRIT 33.5 % (40.0-51.0); HEMOGLOBIN 10.7 g/dL (13.6-17.8); IMMATURE GRANULOCYTES 0.4 %; IMMATURE GRANULOCYTES ABSOLUTE 0.03 10/3/uL (0.0-0.11); LYMPHOCYTES 12.6 %; LYMPHOCYTES ABSOLUTE 0.92 10/3/uL (0.67-4.30); MEAN CORPUS HGB CONC 31.9 g/dL (32.0-36.0); MEAN CORPUSCULAR HEMOGLOB 26.6 pg (26.0-34.0); MEAN PLATELET VOLUME 10.5 fL (9.2-13.0); MONOCYTES 6.3 %; MONOCYTES ABSOLUTE 0.46 10/3/uL (0.21-1.20); NEUTROPHILS ABSOLUTE 5.64 10/3/uL (2.02-8.40); PLATELET COUNT 227 10/3/uL (150-400); RED CELL COUNT 4.02 10/6/uL (4.7-6.1); WHITE BLOOD CELLS 7.3 10/3/uL (4.5-10.5)
[2017-01-03 07:47] LABS: MANUAL DIFF NO %; MEAN CORPUSCULAR VOLUME 83.3 fL (80-100)
[2017-01-03 07:56] LABS: BUN (BLOOD UREA NITROGEN) 13 MG/DL (6-23); CALCIUM, SERUM 8.8 MG/DL (8.5-10.4); CHLORIDE, SERUM 105 MMOL/L (96-112); CO2 (CARBON DIOXIDE) 30 MMOL/L (24-34); CREATININE 0.66 MG/DL (0.70-1.30); GFR AFRICAN AMERICAN 116 ML/MIN (>=60); GFR NON AFRICAN AMERICAN 100 ML/MIN (>=60); GLUCOSE, SERUM 123 MG/DL (60-99); SODIUM, SERUM 143 MMOL/L (135-148)
[2017-01-03 09:25] LABS: PROCALCITONIN 1.04 ng/mL (<0.5)
[2017-01-04 05:27] LABS: HEMATOCRIT 34.2 % (40.0-51.0); MEAN CORPUS HGB CONC 32.2 g/dL (32.0-36.0); MEAN CORPUSCULAR HEMOGLOB 26.3 pg (26.0-34.0); MEAN CORPUSCULAR VOLUME 81.6 fL (80-100); MEAN PLATELET VOLUME 10.9 fL (9.2-13.0); PLATELET COUNT 253 10/3/uL (150-400); RED CELL COUNT 4.19 10/6/uL (4.7-6.1); WHITE BLOOD CELLS 9.1 10/3/uL (4.5-10.5)
[2017-01-04 05:30] LABS: MANUAL DIFF YES %
[2017-01-04 05:32] LABS: BUN (BLOOD UREA NITROGEN) 14 MG/DL (6-23); CHLORIDE, SERUM 111 MMOL/L (96-112); CO2 (CARBON DIOXIDE) 31 MMOL/L (24-34); CREATININE 0.66 MG/DL (0.70-1.30); GFR AFRICAN AMERICAN 116 ML/MIN (>=60); GFR NON AFRICAN AMERICAN 100 ML/MIN (>=60); GLUCOSE, SERUM 140 MG/DL (60-99); POTASSIUM, SERUM 3.7 MMOL/L (3.5-5.3)
[2017-01-04 05:36] LABS: SODIUM, SERUM 136 MMOL/L (135-148)
[2017-01-04 06:03] LABS: EOSINOPHILS 5 %; EOSINOPHILS ABSOLUTE (CALC) 0.46 10/3/uL (0.0-0.53); LYMPHOCYTES 7 %; LYMPHOCYTES ABSOLUTE (CALC) 0.64 10/3/uL (0.67-4.30); MONOCYTES 4 %; MONOCYTES ABSOLUTE (CALC) 0.36 10/3/uL (0.21-1.20); NEUTROPHILS ABSOLUTE (CALC) 7.64 10/3/uL (2.02-8.40); PLATELET ESTIMATE ADQ (ADEQUATE); RBC MORPHOLOGY NORM (NORMAL); SEGMENTED NEUTROPHIL (0) 84 %; TOTAL NUCLEATED CELLS 100
[2017-01-04 08:25] LABS: PROCALCITONIN 0.77 ng/mL (<0.5)
[2017-01-05 03:54] LABS: BASOPHILS 0.5 %; BASOPHILS ABSOLUTE 0.05 10/3/uL (0.0-0.16); EOSINOPHILS 5.9 %; EOSINOPHILS ABSOLUTE 0.55 10/3/uL (0.0-0.53); HEMATOCRIT 34.1 % (40.0-51.0); HEMOGLOBIN 10.9 g/dL (13.6-17.8); IMMATURE GRANULOCYTES 0.4 %; IMMATURE GRANULOCYTES ABSOLUTE 0.04 10/3/uL (0.0-0.11); LYMPHOCYTES 12.4 %; LYMPHOCYTES ABSOLUTE 1.15 10/3/uL (0.67-4.30); MANUAL DIFF NO %; MEAN CORPUSCULAR HEMOGLOB 25.9 pg (26.0-34.0); MEAN PLATELET VOLUME 10.4 fL (9.2-13.0); MONOCYTES 6.8 %; MONOCYTES ABSOLUTE 0.63 10/3/uL (0.21-1.20); NEUTROPHILS ABSOLUTE 6.89 10/3/uL (2.02-8.40); PLATELET COUNT 252 10/3/uL (150-400); RBC DISTRIBUTION WIDTH 14.7 % (12.0-16.0); RED CELL COUNT 4.21 10/6/uL (4.7-6.1); WHITE BLOOD CELLS 9.3 10/3/uL (4.5-10.5)
[2017-01-05 04:09] LABS: BUN (BLOOD UREA NITROGEN) 14 MG/DL (6-23); CALCIUM, SERUM 8.8 MG/DL (8.5-10.4); CHLORIDE, SERUM 104 MMOL/L (96-112); CO2 (CARBON DIOXIDE) 33 MMOL/L (24-34); CREATININE 0.67 MG/DL (0.70-1.30); GFR AFRICAN AMERICAN 115 ML/MIN (>=60); GFR NON AFRICAN AMERICAN 99 ML/MIN (>=60); GLUCOSE, SERUM 114 MG/DL (60-99); POTASSIUM, SERUM 4.2 MMOL/L (3.5-5.3); SODIUM, SERUM 142 MMOL/L (135-148)
[2017-01-05 04:47] LABS: PROCALCITONIN 0.58 ng/mL (<0.5)
[2017-01-06 06:08] LABS: BASOPHILS 0.4 %; BASOPHILS ABSOLUTE 0.04 10/3/uL (0.0-0.16); EOSINOPHILS 4.8 %; EOSINOPHILS ABSOLUTE 0.47 10/3/uL (0.0-0.53); HEMATOCRIT 37.4 % (40.0-51.0); IMMATURE GRANULOCYTES 0.9 %; IMMATURE GRANULOCYTES ABSOLUTE 0.09 10/3/uL (0.0-0.11); LYMPHOCYTES 11.3 %; MANUAL DIFF NO %; MEAN CORPUS HGB CONC 32.1 g/dL (32.0-36.0); MEAN CORPUSCULAR HEMOGLOB 26.3 pg (26.0-34.0); MEAN CORPUSCULAR VOLUME 81.8 fL (80-100); MEAN PLATELET VOLUME 10.6 fL (9.2-13.0); MONOCYTES 6.3 %; MONOCYTES ABSOLUTE 0.61 10/3/uL (0.21-1.20); NEUTROPHILS 76.3 %; NEUTROPHILS ABSOLUTE 7.41 10/3/uL (2.02-8.40); PLATELET COUNT 267 10/3/uL (150-400); RBC DISTRIBUTION WIDTH 14.8 % (12.0-16.0); RED CELL COUNT 4.57 10/6/uL (4.7-6.1); WHITE BLOOD CELLS 9.7 10/3/uL (4.5-10.5)
[2017-01-07] MEDS ORDERED: ROXICODONE15 MG PO ×2 (11:37→11:38)
[2017-01-07] MEDS ORDERED: MUCINEX600 MG PO (11:38)
[2017-01-07] MEDS ORDERED: BROVANA15 MCG INH (11:39)
[2017-01-07] MEDS ORDERED: HABIT14 TOP (11:39)
[2017-01-07] MEDS ORDERED: SPIRIVA INH (11:40)
[2017-01-07] MEDS ORDERED: PULRESP.5 INH (11:40)
[2017-01-07] MEDS ORDERED: DUONEB INH (11:40)
[2017-01-07] MEDS ORDERED: GLUCPH PO (11:41)
[2017-01-07] MEDS ORDERED: MIRALAX POWDER1 PKT PO (11:42)
[2017-01-07] MEDS ORDERED: FLORASTOR250 MG PO (11:42)
[2017-05-13] MEDS ORDERED: ATV1 PO (19:00)
[2017-05-13] MEDS ORDERED: ATV.5 PO ×2 (19:01)
[2017-05-13] MEDS ORDERED: PERI-COLACE1 TAB PO (19:01)
[2017-05-13] MEDS ORDERED: L40 PO (19:02)
[2017-05-13] MEDS ORDERED: PR25 PO (19:02)
[2017-05-13] MEDS ORDERED: DEX2 PO (19:02)
[2017-05-13] MEDS ORDERED: CONSTULOSE PO (19:02)
[2017-05-13] MEDS ORDERED: ABILIFY10 PO (19:03)
[2017-05-13] MEDS ORDERED: ROXICODONE15 MG PO (19:03)
[2017-05-13] MEDS ORDERED: DUONEB INH (19:04)
[2017-05-13] MEDS ORDERED: TRAZ100 PO (19:04)
[2017-05-13] MEDS ORDERED: [UNRECOGNIZED DRUG - OTHER] PO (19:04)
[2017-05-13] MEDS ORDERED: NEUR800 PO (19:05)
[2017-05-13] MEDS ORDERED: KDUR10 PO (19:05)
[2017-05-13] MEDS ORDERED: FORTAMET500 MG PO (19:06)
[2017-05-13] MEDS ORDERED: VITAMIN D31000 UNIT PO (19:06)
[2017-05-13] MEDS ORDERED: ASAB PO (19:06)
[2017-05-13] MEDS ORDERED: PRILOSEC40 MG PO (19:07)
[2017-05-13] MEDS ORDERED: PAIN PUMP (19:08)
== END 2017-01-07 13:21 | disposition home health service (06) | DRG 871 ==
LOC: ER 19:16 → 4SO 23:19
PROVIDERS: Hospitalist; Internal Medicine; Nurse Practitioner Family
DX: A41.9 Sepsis, unspecified organism (principal); J15.9 Unspecified bacterial pneumonia; J96.21 Acute and chronic respiratory failure with hypoxia; Z99.81 Dependence on supplemental oxygen; J44.0 Chronic obstructive pulmonary disease with (acute) lower respiratory infection; I50.32 Chronic diastolic (congestive) heart failure; E11.9 Type 2 diabetes mellitus without complications; D50.9 Iron deficiency anemia, unspecified; J98.11 Atelectasis; E03.9 Hypothyroidism, unspecified; M54.9 Dorsalgia, unspecified; Z79.891 Long term (current) use of opiate analgesic; Z72.0 Tobacco use; Z88.1 Allergy status to other antibiotic agents; Z88.8 Allergy status to other drugs, medicaments and biological substances; Z91.14 Patient's other noncompliance with medication regimen; Y95 Nosocomial condition; K59.03 Drug induced constipation; T40.0X5A Adverse effect of opium, initial encounter; E55.9 Vitamin D deficiency, unspecified; Z85.820 Personal history of malignant melanoma of skin; Z86.718 Personal history of other venous thrombosis and embolism; G40.909 Epilepsy, unspecified, not intractable, without status epilepticus; F31.9 Bipolar disorder, unspecified; Z87.01 Personal history of pneumonia (recurrent); E66.9 Obesity, unspecified; Z68.33 Body mass index [BMI] 33.0-33.9, adult; G89.4 Chronic pain syndrome; I87.8 Other specified disorders of veins
CPT/HCPCS: 36600; 71010; 71020; 74177; 80048; 80053; 81001; 82805; 82962; 83036; 83605; 83690; 83880; 84132; 84145; 84439; 84443; 84484; 85014; 85018; 85025; 85610; 85730; 87040; 87150; 87449; 93005; 94640; 94667; 94668; 96365; 96375; 97110-GP; 97116-GP; 97161-GP; 97165-GO; 97530-GP; 99285; A9270-GY; G8978-CL-GP; G8979-CK-GP; J0456; J0692; J1170; J1885; J2405; J2930; J3370; Q9967

== ENCOUNTER 2017-01-23 22:09 | Emergency (ER) | payer OTHER ==
[2017-01-23 22:07] LABS: BASOPHILS 0.3 %; BASOPHILS ABSOLUTE 0.03 10/3/uL (0.0-0.16); EOSINOPHILS 3.8 %; EOSINOPHILS ABSOLUTE 0.35 10/3/uL (0.0-0.53); HEMATOCRIT 34.1 % (40.0-51.0); HEMOGLOBIN 10.5 g/dL (13.6-17.8); IMMATURE GRANULOCYTES 0.4 %; IMMATURE GRANULOCYTES ABSOLUTE 0.04 10/3/uL (0.0-0.11); LYMPHOCYTES 14.3 %; LYMPHOCYTES ABSOLUTE 1.32 10/3/uL (0.67-4.30); MEAN CORPUS HGB CONC 30.8 g/dL (32.0-36.0); MEAN CORPUSCULAR HEMOGLOB 24.4 pg (26.0-34.0); MEAN PLATELET VOLUME 9.9 fL (9.2-13.0); MONOCYTES 5.8 %; MONOCYTES ABSOLUTE 0.54 10/3/uL (0.21-1.20); NEUTROPHILS 75.4 %; NEUTROPHILS ABSOLUTE 6.98 10/3/uL (2.02-8.40); PLATELET COUNT 228 10/3/uL (150-400); RBC DISTRIBUTION WIDTH 15.1 % (12.0-16.0); WHITE BLOOD CELLS 9.3 10/3/uL (4.5-10.5)
[2017-01-23 22:08] LABS: MANUAL DIFF NO %; MEAN CORPUSCULAR VOLUME 79.3 fL (80-100)
[~2017-01-23 22:09] MED LIST changes: +BROVANA15 MCG INH; +CHANTIX1 PO; +DUONEB INH; +FLORASTOR250 MG PO; +HABIT14 TOP; +MIRALAX POWDER1 PKT PO; +MSCONTIN PO; +MUCINEX600 MG PO; +PAIN PUMP; +PULRESP.5 INH; +ROXICODONE15 MG PO
[2017-01-23 22:23] LABS: ALBUMIN 3.2 G/DL (3.5-5.0); BUN (BLOOD UREA NITROGEN) 12 MG/DL (6-23); CALCIUM, SERUM 8.6 MG/DL (8.5-10.4); CHLORIDE, SERUM 105 MMOL/L (96-112); CO2 (CARBON DIOXIDE) 34 MMOL/L (24-34); CREATININE 0.65 MG/DL (0.70-1.30); GFR AFRICAN AMERICAN 116 ML/MIN (>=60); GFR NON AFRICAN AMERICAN 100 ML/MIN (>=60); GLOBULIN 3.2 G/DL (2.5-4.1); POTASSIUM, SERUM 3.8 MMOL/L (3.5-5.3); SGOT(AST) 32 U/L (5-40); SGPT(ALT) 44 U/L (5-65); SODIUM, SERUM 143 MMOL/L (135-148); TOTAL PROTEIN 6.4 G/DL (6.0-8.5)
[2017-01-23 22:24] LABS: ALKALINE PHOSPHATASE 160 U/L (45-117); GLUCOSE, SERUM 154 MG/DL (60-99); TOTAL BILIRUBIN 0.3 MG/DL (0-1.2)
[2017-01-23 23:47] LABS: TROPONIN I <0.02 NG/ML (<0.05)
[2017-05-13] MEDS ORDERED: ATV1 PO (19:00)
[2017-05-13] MEDS ORDERED: PERI-COLACE1 TAB PO (19:01)
[2017-05-13] MEDS ORDERED: ATV.5 PO ×2 (19:01)
[2017-05-13] MEDS ORDERED: L40 PO (19:02)
[2017-05-13] MEDS ORDERED: DEX2 PO (19:02)
[2017-05-13] MEDS ORDERED: CONSTULOSE PO (19:02)
[2017-05-13] MEDS ORDERED: PR25 PO (19:02)
[2017-05-13] MEDS ORDERED: ABILIFY10 PO (19:03)
[2017-05-13] MEDS ORDERED: ROXICODONE15 MG PO (19:03)
[2017-05-13] MEDS ORDERED: [UNRECOGNIZED DRUG - OTHER] PO (19:04)
[2017-05-13] MEDS ORDERED: TRAZ100 PO (19:04)
[2017-05-13] MEDS ORDERED: DUONEB INH (19:04)
[2017-05-13] MEDS ORDERED: NEUR800 PO (19:05)
[2017-05-13] MEDS ORDERED: KDUR10 PO (19:05)
[2017-05-13] MEDS ORDERED: ASAB PO (19:06)
[2017-05-13] MEDS ORDERED: FORTAMET500 MG PO (19:06)
[2017-05-13] MEDS ORDERED: VITAMIN D31000 UNIT PO (19:06)
[2017-05-13] MEDS ORDERED: PRILOSEC40 MG PO (19:07)
[2017-05-13] MEDS ORDERED: PAIN PUMP (19:08)
== END 2017-01-24 02:29 | disposition home or self-care (01) ==
LOC: ER 22:09
PROVIDERS: Emergency Medicine
DX: J44.9 Chronic obstructive pulmonary disease, unspecified (principal); Z72.0 Tobacco use; E11.9 Type 2 diabetes mellitus without complications; Z87.01 Personal history of pneumonia (recurrent); Z90.49 Acquired absence of other specified parts of digestive tract; Z98.890 Other specified postprocedural states; Z88.1 Allergy status to other antibiotic agents; Z88.8 Allergy status to other drugs, medicaments and biological substances; Z79.84 Long term (current) use of oral hypoglycemic drugs; Z79.899 Other long term (current) drug therapy
CPT/HCPCS: 71010; 80053; 84484; 85025; 93005; 94640; 96374; 96375; 99285; J2405; J2930

== ENCOUNTER 2017-02-07 23:01 | Emergency (ER) | payer OTHER ==
[2017-02-08 00:30] LABS: BASOPHILS 0.4 %; BASOPHILS ABSOLUTE 0.04 10/3/uL (0.0-0.16); EOSINOPHILS 0.3 %; EOSINOPHILS ABSOLUTE 0.03 10/3/uL (0.0-0.53); HEMATOCRIT 32.9 % (40.0-51.0); HEMOGLOBIN 9.9 g/dL (13.6-17.8); IMMATURE GRANULOCYTES 0.3 %; IMMATURE GRANULOCYTES ABSOLUTE 0.03 10/3/uL (0.0-0.11); LYMPHOCYTES 4.4 %; LYMPHOCYTES ABSOLUTE 0.48 10/3/uL (0.67-4.30); MEAN CORPUS HGB CONC 30.1 g/dL (32.0-36.0); MEAN CORPUSCULAR HEMOGLOB 22.9 pg (26.0-34.0); MEAN PLATELET VOLUME 10.5 fL (9.2-13.0); MONOCYTES 1.9 %; MONOCYTES ABSOLUTE 0.21 10/3/uL (0.21-1.20); NEUTROPHILS 92.7 %; NEUTROPHILS ABSOLUTE 10.23 10/3/uL (2.02-8.40); PLATELET COUNT 239 10/3/uL (150-400); RED CELL COUNT 4.33 10/6/uL (4.7-6.1)
[2017-02-08 00:31] LABS: MANUAL DIFF NO %
[2017-02-08 00:43] LABS: A/G RATIO 1.2 (0.7-1.9); ALBUMIN 3.6 G/DL (3.5-5.0); ALKALINE PHOSPHATASE 169 U/L (45-117); BUN (BLOOD UREA NITROGEN) 12 MG/DL (6-23); CALCIUM, SERUM 8.8 MG/DL (8.5-10.4); CHLORIDE, SERUM 106 MMOL/L (96-112); CREATININE 0.67 MG/DL (0.70-1.30); GFR AFRICAN AMERICAN 114 ML/MIN (>=60); GFR NON AFRICAN AMERICAN 99 ML/MIN (>=60); GLOBULIN 3.1 G/DL (2.5-4.1); POTASSIUM, SERUM 4.3 MMOL/L (3.5-5.3); SGOT(AST) 36 U/L (5-40); SGPT(ALT) 45 U/L (5-65); SODIUM, SERUM 141 MMOL/L (135-148); TOTAL BILIRUBIN 0.3 MG/DL (0-1.2); TOTAL PROTEIN 6.7 G/DL (6.0-8.5)
[2017-02-08 00:45] LABS: CO2 (CARBON DIOXIDE) 29 MMOL/L (24-34); GLUCOSE, SERUM 200 MG/DL (60-99)
[2017-02-08 01:29] LABS: TROPONIN I <0.02 NG/ML (<0.05)
[2017-05-13] MEDS ORDERED: ATV1 PO (19:00)
[2017-05-13] MEDS ORDERED: PERI-COLACE1 TAB PO (19:01)
[2017-05-13] MEDS ORDERED: ATV.5 PO ×2 (19:01)
[2017-05-13] MEDS ORDERED: CONSTULOSE PO (19:02)
[2017-05-13] MEDS ORDERED: PR25 PO (19:02)
[2017-05-13] MEDS ORDERED: L40 PO (19:02)
[2017-05-13] MEDS ORDERED: DEX2 PO (19:02)
[2017-05-13] MEDS ORDERED: ROXICODONE15 MG PO (19:03)
[2017-05-13] MEDS ORDERED: ABILIFY10 PO (19:03)
[2017-05-13] MEDS ORDERED: [UNRECOGNIZED DRUG - OTHER] PO (19:04)
[2017-05-13] MEDS ORDERED: DUONEB INH (19:04)
[2017-05-13] MEDS ORDERED: TRAZ100 PO (19:04)
[2017-05-13] MEDS ORDERED: KDUR10 PO (19:05)
[2017-05-13] MEDS ORDERED: NEUR800 PO (19:05)
[2017-05-13] MEDS ORDERED: ASAB PO (19:06)
[2017-05-13] MEDS ORDERED: FORTAMET500 MG PO (19:06)
[2017-05-13] MEDS ORDERED: VITAMIN D31000 UNIT PO (19:06)
[2017-05-13] MEDS ORDERED: PRILOSEC40 MG PO (19:07)
[2017-05-13] MEDS ORDERED: PAIN PUMP (19:08)
== END 2017-02-08 04:15 | disposition home or self-care (01) ==
LOC: ER 23:01
PROVIDERS: Nurse Practitioner Acute Care
DX: J44.9 Chronic obstructive pulmonary disease, unspecified (principal); F17.200 Nicotine dependence, unspecified, uncomplicated; Z87.01 Personal history of pneumonia (recurrent); I50.9 Heart failure, unspecified; F31.9 Bipolar disorder, unspecified; D64.9 Anemia, unspecified; E11.9 Type 2 diabetes mellitus without complications; Z88.8 Allergy status to other drugs, medicaments and biological substances; Z88.1 Allergy status to other antibiotic agents; Z79.899 Other long term (current) drug therapy; Z79.84 Long term (current) use of oral hypoglycemic drugs
CPT/HCPCS: 36600; 71020; 80053; 82330; 82803; 82947; 84132; 84295; 84484; 85014; 85025; 87070; 87205; 93005; 94640; 99285